=== PATIENT | female | born 1995 | race Caucasian/White ===

== ENCOUNTER 2016-08-06 15:04 | Outpatient (CLI) | payer OTHER | END 2016-08-06 23:00 | LOC: LAB SRH 15:04 | DX: E16.2 Hypoglycemia, unspecified (principal); N91.2 Amenorrhea, unspecified; Z33.1 Pregnant state, incidental | CPT/HCPCS: 90074; 90078; 90100; 90197; 90599; 90600; 90605; 90606; 90851; 91286; 92120; 92121; 92122; 92123; 92124; 92125; 92126; 92127; 92128; 92129; 92668; 92670; 93140; 94129; 94130; 98480 ==

== ENCOUNTER 2016-09-10 09:45 | Emergency (ER) | payer OTHER ==
--- NOTE | 2016-09-10 11:08 | ED NURSING NOTES ---
Clinical Report - Nurses [facility] [place] [address] 09/10/2016 9:45 Patient: YOSELIN URBANO TRIAGE Triage time 09:52. Acuity: LEVEL 3. Chief Complaint: PAINFUL URINATION, URGENCY and FREQUENCY and ABDOMINAL PAIN. --09:55 Linda Heath R.N. 09:40 09/10/16. BP: 129/83. HR: 102. RR: 20. O2 saturation: 97%. Temp: 98.4 F. Pain level now: 02/10. --11:10 Linda Heath R.N. Weight: 56.6 kg. Height/Length: 62 inches. BMI: 22.8. --09:54 Linda Heath R.N. Medications None. --11:16 Linda Haeth R.N. Allergies Aspirin. Claritin. --11:16 Linda Heath R.N. History Arrived by private vehicle. Historian: patient. This started yesterday. ( Pt reports she is 11 weeks - No care yet.). She has had fever and abdominal pain. ( vomiting). Last oral intake by patient was breakfast. PAST MEDICAL HX: Pelvic inflammatory disease. SOCIAL HX: Current every day heavy tobacco smoker- 1 pack per day. No alcohol use or drug use. No infectious disease exposure. ABUSE ASSESSMENT: No report of abuse. SELF HARM ASSESSMENT: A self harm assessment was performed. The patient answered "no" to the question "Do you have thoughts of harming or killing yourself?". --09:55 Linda Heath R.N. PROBLEMS: Pelvic Inflammatory Disease. Lumbar Strain. Vaginitis. Dysfunctional Uterine Bleeding. Vaginal Bleeding. Anxiety Reaction. Depression. Pelvic Pain. Asthma. --09:54 Linda Heath R.N. PHYSICAL ASSESSMENT GENERAL / NEURO / PSYCH: Alert. Oriented X 4. Appears anxious. RESPIRATORY: Respirations not labored. CVS: Capillary refill less than 2 seconds. GI / : Abdominal tenderness. Pain with urination. She has had frequency of urination. SKIN: Skin is warm and dry. --10:01 iLnda Heath R.N. NURSING PROGRESS NOTES ( Pt states she is homeless, stayed in a park last night.). --09:56 Linda Heath R.N. ( Pt reports having an "anxiety attack" since yesterday and is asking for "something to help me calm down."). --09:58 Linda Heath R.N. ( cloudy, turbid urine collected and sent to the lab.). --10:00 Linda Heath R.N. Patient gowned. Head of bed elevated. Reassurance given. Call light placed in reach. Patient waiting for evaluation. --10:01 Linda Heath R.N. 10:16 09/10/2016 Zofran ODT (Ondansetron) PO Oral Disintegrating Tablets 4 mg given. --10:17 Linda Heath R.N. 10:39 09/10/2016 GI COCKTAIL WHITE (Simethicone) PO Oral Suspension 50 mL given. Allergies verified and confirmed 5 rights. --10:39 Linda Heath R.N. 10:39 09/10/16. BP: 96/56. HR: 108. RR: 20. O2 saturation: 100%. --10:40 Linda Heath R.N. 11:08 09/10/16. BP: 89/58. HR: 104. RR: 20. O2 saturation: 98%. --11:08 Linda Heath R.N. DISPOSITION / DISCHARGE Departure time: 1114. Discharge instructions provided and reviewed with the patient. Patient verbalized understanding. Written instructions provided in Malaysian. The patient was discharged by the physician. She was discharged home. She left the Emergency Department ambulatory and via private vehicle. Patient driving. --11:15 Linda Heath R.N. 11:15 09/10/16. BP: 89/58. HR: 104. RR: 20. O2 saturation: 97%. Pain level now: 12/11. --11:15 Linda Heath R.N. Locked/Released at 09/10/2016 11:17 by Linda Heath R.N.
--- NOTE | 2016-09-10 11:08 | ED ORDER SUMMARY ---
..... Patient: YOSELIN URBANO OrderSheet [facility] VisitID: [id number] [place] [address] 21y, F Registration Date/Time: 09/10/2016 ORDER SHEET Weight: 56.6 kg Allergies: Aspirin, Claritin GENERAL ORDERS: Urine Urgent (:09/10/2016 SStone R.N. per protocol) (Ack 9:59 KHoerner) (9:59 KHoerner) UA-Culture if indicated Urgent (:09/10/2016 SStone R.N. per protocol) (Ack 9:59 KHoerner) (9:59 KHoerner) MEDICATION ORDERS: Zofran ODT PO 4 mg (NOW) (10:12 09/10/2016 Jeana FERNANDEZ) (10:17 SStone R.N.) GI Cocktail WHITE PO 50 mL (NOW) (10:13 09/10/2016 Jeana FERNANDEZ) (10:39 SStone R.N.) IV FLUIDS: ORDER SHEET NOTES: [Electronically signed by Linda Heath R.N. (11:09/10/2016)] [Electronically signed by Ej Lee MD (09:31 09/11/2016)] [Electronically locked/signed by Linda Heath R.N. (:09/10/2016)]
--- NOTE | 2016-09-10 11:08 | ED ORDER SUMMARY ---
..... Patient: YOSELIN URBANO OrderSheet [facility] VisitID: [id number] [place] [address] 21y, F Registration Date/Time: 09/10/2016 ORDER SHEET Weight: 56.6 kg Allergies: Aspirin, Claritin GENERAL ORDERS: Urine Urgent (:09/10/2016 SStone R.N. per protocol) (Ack 9:59 KHoerner) (9:59 KHoerner) UA-Culture if indicated Urgent (:09/10/2016 SStone R.N. per protocol) (Ack 9:59 KHoerner) (9:59 KHoerner) MEDICATION ORDERS: Zofran ODT PO 4 mg (NOW) (10:12 09/10/2016 Jeana FERNANDEZ) (10:17 SStone R.N.) GI Cocktail WHITE PO 50 mL (NOW) (10:13 09/10/2016 Jeana FERNANDEZ) (10:39 SStone R.N.) IV FLUIDS: ORDER SHEET NOTES: [Electronically signed by Linda Heath R.N. (11:09/10/2016)] [Electronically signed by Ej Lee MD (09:31 09/11/2016)] [Electronically locked/signed by Linda Heath R.N. (:09/10/2016)]
--- NOTE | 2016-09-10 11:08 | ED CLINICAL REPORT ---
Clinical Report - Physicians/Mid Levels [facility] [address] [place] [address] 09/10/2016 9:45 Patient: YOSELIN URBANO Time Seen: 10:Sep 10 2016. Arrived- By private vehicle. Historian- patient. CPT: ER phys charges level 4 (#[id number]). HISTORY OF PRESENT ILLNESS Chief Complaint: DYSURIA. This started today and still present. The symptoms are described as moderate. Modifying factors- worsened by urination. Not relieved by anything. The patient has had moderate abdominal pain. The pain is described as located in the epigastrium and lower abdomen. No pelvic pain, vaginal pain, abnormal bleeding or vaginal discharge. The patient has had pain with urination. The patient has had urinary frequency. Currently . Similar symptoms previously: As bad. Recent medical care: Not recently seen/assessed. REVIEW OF SYSTEMS No nausea, vomiting, diarrhea, fever or chills. No sore throat, cough, difficulty breathing, chest pain or skin rash. All systems otherwise negative, except as recorded above. PAST HISTORY ( Pelvic Inflammatory Disease. Lumbar Strain. Vaginitis. Dysfunctional Uterine Bleeding. Vaginal Bleeding. Anxiety Reaction. Depression. Pelvic Pain. Asthma.). Medications: None. Allergies: Aspirin. Claritin. SOCIAL HISTORY Heavy tobacco smoker (cigarette)- 1 pack per day. No alcohol use or drug use. ADDITIONAL NOTES The nursing notes have been reviewed. PHYSICAL EXAM Vital Signs: 09/10/2016 09:40 BP: 129/83. HR: 102. RR: 20. O2 saturation: 97%. Temp: 98.4 F. Pain level now: 02/10. Appearance: Alert. Patient in mild distress. HEENT: Normal external inspection. ENT: Pharynx normal. Neck: Neck supple. CVS: Heart sounds normal. Respiratory: No respiratory distress. Breath sounds normal. Chest nontender. Abdomen: Mild tenderness in the epigastric area and lower abdomen. No guarding. Bowel sounds normal. Back: Normal external inspection. No CVA tenderness. Skin: Skin warm. Normal skin color. No rash. Extremities: Extremities nontender. No lower extremity edema. Neuro: Oriented X 3. Mood/affect normal. No motor deficit. LABS, X-RAYS, AND EKG Laboratory Tests: UA-Culture if indicated: (EFRAIN: 09/10/2016 09:50) ( [facility] 09/10/2016 10:30) Final results Test Result Flag Units (Reference) URINE COLOR YELLOW URINE APPEARANCE CLOUDY URINE GLUCOSE NEGATIVE (NEGATIVE) URINE BILIRUBIN ICTOTEST NEGATIVE (NEGATIVE) URINE KETONE TRACE (NEGATIVE) URINE SPECIFIC GRAVITY >= 1.030 (1.010-1.030) URINE PH 6.0 (5.0-8.0) URINE PROTEIN TRACE (NEGATIVE) URINE UROBILINOGEN 0.2 EU/dL (0.2-1.0) URINE NITRITE NEGATIVE (NEGATIVE) URINE BLOOD 1+ (NEGATIVE) URINE LEUK ESTERASE POSITIVE (NEGATIVE) URINE RBC 5-10 rbc/hpf (0-1) URINE WBC 5-10 wbc/hpf (0-1) URINE EPITHELIAL CELLS 5-10 EPI/hpf (0-5) URINE BACTERIA MODERATE (2+ TO 3+) (NONE SEEN) URINE COMMENT CULTURE INDICATED 3+ AMORPHOUS CRYSTALSURINE CULTURES ARE SET-UP BASED ON THE FOLLOWING CRITERIA:POSITIVE NITRITEPOSITIVE LEUKOCYTE ESTERASEGREATER THAN 10 WHITE BLOOD CELLSMODERATE (2+) OR GREATER BACTERIA Urine: (EFRAIN: 09/10/2016 09:50) ( [facility] 09/10/2016 10:18) Final results Test Result Flag Units (Reference) URINE POSITIVE . PROGRESS AND PROCEDURES Course of Care: Zofran 4 mg ODT White GI cocktail Patient is stable. Symptoms better. Pt wsith UTI and gastritis vs reflux. Now c/o chronic low back pain . Exam shows mild soft tissue tenderness over the lumbar soft tissue. Neuro exam negative. No emergent condition.No sign of pyelo. Patient/family counseled. Disposition: Discharged. Condition: stable. CLINICAL IMPRESSION Acute epigastric and suprapubic abdominal pain. Acute urinary tract infection with cystitis. Acute gastritis. No chronic gastritis, alcoholic gastritis or hemorrhagic gastritis. First trimester ; positive test in emergency department. Musculoskeletal , low back pain. INSTRUCTIONS Apply moist heat for 15-20 minutes three times a day for five days until better. No strenuous activity. Rest. Drink plenty of fluids. No sexual contact. Warnings: Further evaluation is necessary. Prescription Medications: Cephalexin 500mg: take 1 tab orally every 6 hours for 7 days. No refills Carafate 1 gm tablets: take 1 orally four times daily (1 hour before meals and at bedtime). Dispense sixty (60). No refills. Substitution is permissible. Prilosec 40 mg capsules: take 1 capsule orally every day for 10 days. Dispense ten (10). No refill. OTC Medications: Take acetaminophen (Tylenol, Datril, etc.) according to label instructions. Available over the counter. Follow-up: Follow up with your doctor in two days. Call for the next available appointment. Understanding of the discharge instructions verbalized by patient. (Electronically signed by Ej Lee MD 09/11/2016 9:31)
--- NOTE | 2016-09-10 11:08 | ED CLINICAL REPORT ---
Clinical Report - Physicians/Mid Levels [facility] [address] [place] [address] 09/10/2016 9:45 Patient: YOSELIN URBANO Time Seen: 10:Sep 10 2016. Arrived- By private vehicle. Historian- patient. CPT: ER phys charges level 4 (#[id number]). HISTORY OF PRESENT ILLNESS Chief Complaint: DYSURIA. This started today and still present. The symptoms are described as moderate. Modifying factors- worsened by urination. Not relieved by anything. The patient has had moderate abdominal pain. The pain is described as located in the epigastrium and lower abdomen. No pelvic pain, vaginal pain, abnormal bleeding or vaginal discharge. The patient has had pain with urination. The patient has had urinary frequency. Currently . Similar symptoms previously: As bad. Recent medical care: Not recently seen/assessed. REVIEW OF SYSTEMS No nausea, vomiting, diarrhea, fever or chills. No sore throat, cough, difficulty breathing, chest pain or skin rash. All systems otherwise negative, except as recorded above. PAST HISTORY ( Pelvic Inflammatory Disease. Lumbar Strain. Vaginitis. Dysfunctional Uterine Bleeding. Vaginal Bleeding. Anxiety Reaction. Depression. Pelvic Pain. Asthma.). Medications: None. Allergies: Aspirin. Claritin. SOCIAL HISTORY Heavy tobacco smoker (cigarette)- 1 pack per day. No alcohol use or drug use. ADDITIONAL NOTES The nursing notes have been reviewed. PHYSICAL EXAM Vital Signs: 09/10/2016 09:40 BP: 129/83. HR: 102. RR: 20. O2 saturation: 97%. Temp: 98.4 F. Pain level now: 02/10. Appearance: Alert. Patient in mild distress. HEENT: Normal external inspection. ENT: Pharynx normal. Neck: Neck supple. CVS: Heart sounds normal. Respiratory: No respiratory distress. Breath sounds normal. Chest nontender. Abdomen: Mild tenderness in the epigastric area and lower abdomen. No guarding. Bowel sounds normal. Back: Normal external inspection. No CVA tenderness. Skin: Skin warm. Normal skin color. No rash. Extremities: Extremities nontender. No lower extremity edema. Neuro: Oriented X 3. Mood/affect normal. No motor deficit. LABS, X-RAYS, AND EKG Laboratory Tests: UA-Culture if indicated: (EFRAIN: 09/10/2016 09:50) ( [facility] 09/10/2016 10:30) Final results Test Result Flag Units (Reference) URINE COLOR YELLOW URINE APPEARANCE CLOUDY URINE GLUCOSE NEGATIVE (NEGATIVE) URINE BILIRUBIN ICTOTEST NEGATIVE (NEGATIVE) URINE KETONE TRACE (NEGATIVE) URINE SPECIFIC GRAVITY >= 1.030 (1.010-1.030) URINE PH 6.0 (5.0-8.0) URINE PROTEIN TRACE (NEGATIVE) URINE UROBILINOGEN 0.2 EU/dL (0.2-1.0) URINE NITRITE NEGATIVE (NEGATIVE) URINE BLOOD 1+ (NEGATIVE) URINE LEUK ESTERASE POSITIVE (NEGATIVE) URINE RBC 5-10 rbc/hpf (0-1) URINE WBC 5-10 wbc/hpf (0-1) URINE EPITHELIAL CELLS 5-10 EPI/hpf (0-5) URINE BACTERIA MODERATE (2+ TO 3+) (NONE SEEN) URINE COMMENT CULTURE INDICATED 3+ AMORPHOUS CRYSTALSURINE CULTURES ARE SET-UP BASED ON THE FOLLOWING CRITERIA:POSITIVE NITRITEPOSITIVE LEUKOCYTE ESTERASEGREATER THAN 10 WHITE BLOOD CELLSMODERATE (2+) OR GREATER BACTERIA Urine: (EFRAIN: 09/10/2016 09:50) ( [facility] 09/10/2016 10:18) Final results Test Result Flag Units (Reference) URINE POSITIVE . PROGRESS AND PROCEDURES Course of Care: Zofran 4 mg ODT White GI cocktail Patient is stable. Symptoms better. Pt wsith UTI and gastritis vs reflux. Now c/o chronic low back pain . Exam shows mild soft tissue tenderness over the lumbar soft tissue. Neuro exam negative. No emergent condition.No sign of pyelo. Patient/family counseled. Disposition: Discharged. Condition: stable. CLINICAL IMPRESSION Acute epigastric and suprapubic abdominal pain. Acute urinary tract infection with cystitis. Acute gastritis. No chronic gastritis, alcoholic gastritis or hemorrhagic gastritis. First trimester ; positive test in emergency department. Musculoskeletal , low back pain. INSTRUCTIONS Apply moist heat for 15-20 minutes three times a day for five days until better. No strenuous activity. Rest. Drink plenty of fluids. No sexual contact. Warnings: Further evaluation is necessary. Prescription Medications: Cephalexin 500mg: take 1 tab orally every 6 hours for 7 days. No refills Carafate 1 gm tablets: take 1 orally four times daily (1 hour before meals and at bedtime). Dispense sixty (60). No refills. Substitution is permissible. Prilosec 40 mg capsules: take 1 capsule orally every day for 10 days. Dispense ten (10). No refill. OTC Medications: Take acetaminophen (Tylenol, Datril, etc.) according to label instructions. Available over the counter. Follow-up: Follow up with your doctor in two days. Call for the next available appointment. Understanding of the discharge instructions verbalized by patient. (Electronically signed by Ej Lee MD 09/11/2016 9:31)
--- NOTE | 2016-09-10 11:08 | ED NURSING NOTES ---
Clinical Report - Nurses [facility] [place] [address] [place] [address] 09/10/2016 9:45 Patient: YOSELIN URBANO TRIAGE Triage time 09:52. Acuity: LEVEL 3. Chief Complaint: PAINFUL URINATION, URGENCY and FREQUENCY and ABDOMINAL PAIN. --09:55 Linda Heath R.N. 09:40 09/10/16. BP: 129/83. HR: 102. RR: 20. O2 saturation: 97%. Temp: 98.4 F. Pain level now: 02/10. --11:10 Linda Heath R.N. Weight: 56.6 kg. Height/Length: 62 inches. BMI: 22.8. --09:54 Linda Heath R.N. Medications None. --11:16 Linda Heath R.N. Allergies Aspirin. Claritin. --11:16 Linda Heath R.N. History Arrived by private vehicle. Historian: patient. This started yesterday. ( Pt reports she is 11 weeks - No care yet.). She has had fever and abdominal pain. ( vomiting). Last oral intake by patient was breakfast. PAST MEDICAL HX: Pelvic inflammatory disease. SOCIAL HX: Current every day heavy tobacco smoker- 1 pack per day. No alcohol use or drug use. No infectious disease exposure. ABUSE ASSESSMENT: No report of abuse. SELF HARM ASSESSMENT: A self harm assessment was performed. The patient answered "no" to the question "Do you have thoughts of harming or killing yourself?". --09:55 Linda Heath R.N. PROBLEMS: Pelvic Inflammatory Disease. Lumbar Strain. Vaginitis. Dysfunctional Uterine Bleeding. Vaginal Bleeding. Anxiety Reaction. Depression. Pelvic Pain. Asthma. --09:54 Linda Heath R.N. PHYSICAL ASSESSMENT GENERAL / NEURO / PSYCH: Alert. Oriented X 4. Appears anxious. RESPIRATORY: Respirations not labored. CVS: Capillary refill less than 2 seconds. GI / : Abdominal tenderness. Pain with urination. She has had frequency of urination. SKIN: Skin is warm and dry. --10:01 Linda Heath R.N. NURSING PROGRESS NOTES ( Pt states she is homeless, stayed in a park last night.). --09:56 Linda Heath R.N. ( Pt reports having an "anxiety attack" since yesterday and is asking for "something to help me calm down."). --09:58 Linda Heath R.N. ( cloudy, turbid urine collected and sent to the lab.). --10:00 Linda Heath R.N. Patient gowned. Head of bed elevated. Reassurance given. Call light placed in reach. Patient waiting for evaluation. --10:01 Linda Heath R.N. 10:16 09/10/2016 Zofran ODT (Ondansetron) PO Oral Disintegrating Tablets 4 mg given. --10:17 Linda Heath R.N. 10:39 09/10/2016 GI COCKTAIL WHITE (Simethicone) PO Oral Suspension 50 mL given. Allergies verified and confirmed 5 rights. --10:39 Linda Heath R.N. 10:39 09/10/16. BP: 96/56. HR: 108. RR: 20. O2 saturation: 100%. --10:40 Linda Heath R.N. 11:08 09/10/16. BP: 89/58. HR: 104. RR: 20. O2 saturation: 98%. --11:08 Linda Heath R.N. DISPOSITION / DISCHARGE Departure time: 1114. Discharge instructions provided and reviewed with the patient. Patient verbalized understanding. Written instructions provided in Montenegrin. The patient was discharged by the physician. She was discharged home. She left the Emergency Department ambulatory and via private vehicle. Patient driving. --11:15 Linda Heath R.N. 11:15 09/10/16. BP: 89/58. HR: 104. RR: 20. O2 saturation: 97%. Pain level now: 12/11. --11:15 Linda Heath R.N. Locked/Released at 09/10/2016 11:17 by Linda Heath R.N.
--- NOTE | 2016-09-11 09:32 | ED MAR SUMMARY ---
..... Medication Administration Record [facility] [address] [place] [address] Patient: YOSELIN URBANO Visit ID: [id number] 21y, F Weight: 56.6 kg Height/Length: 62 in BMI: 22.8 ALLERGIES: Aspirin, Claritin Given 10:16 09/10/2016 Linda Heath R.N. Medication Administered: ZOFRAN ODT [PO] (ONDANSETRON), Dose: 4 mg Oral Disintegrating Tablets PO. Medication Ordered: Zofran ODT PO 4 mg (NOW). Given 10:39 09/10/2016 Linda Heath RRonna Medication Administered: GI COCKTAIL WHITE [PO] (SIMETHICONE), Dose: 50 mL Oral Suspension PO. Medication Ordered: GI Cocktail WHITE PO 50 mL (NOW).
--- NOTE | 2016-09-11 09:32 | ED MED RECONCILIATION SUMMARY ---
Patient: YOSELIN URBANO Medication Reconciliation Report [facility] VisitID: [id number] [place] [address] 21y, F Registration Date/Time: 09/10/2016 Weight: 56.6 kg Height/Length: 62 in. BMI: 22.8 ALLERGIES: Aspirin, Claritin The patient's Home Medications are listed below: NONE. The source(s) of the original Home Medication information: Not obtained. The following Medications were given to the patient in the Emergency Department: Zofran ODT [PO] PO 4 mg, administered: 09/10/2016 10:16:00 AM GI COCKTAIL WHITE [PO] PO 50 mL, administered: 09/10/2016 10:39:00 AM The following Medications were prescribed to the patient: Take acetaminophen (Tylenol, Datril, etc.) according to label instructions. Available over the counter. -- Ej Lee MD Cephalexin 500mg: take 1 tab orally every 6 hours for 7 days. No refills -- Ej Lee MD Carafate 1 gm tablets: take 1 orally four times daily (1 hour before meals and at bedtime). Dispense sixty (60). No refills. Substitution is permissible. -- Ej Lee MD Prilosec 40 mg capsules: take 1 capsule orally every day for 10 days. Dispense ten (10). No refill. -- Ej Lee MD
--- NOTE | 2016-09-11 09:32 | ED DISCHARGE INSTRUCTIONS ---
Patient: YOSELIN URBANO General Instructions [facility] VisitID: [id number] [place] [address] 21y, F Registration Date/Time: 09/10/2016 Acute epigastric and suprapubic abdominal pain. Acute urinary tract infection with cystitis. Acute gastritis. No chronic gastritis, alcoholic gastritis or hemorrhagic gastritis. First trimester ; positive test in emergency department. Musculoskeletal , low back pain. INSTRUCTIONS Apply moist heat for 15-20 minutes three times a day for five days until better. No strenuous activity. Rest. Drink plenty of fluids. No sexual contact. Warnings: Further evaluation is necessary. Prescription Medications: Cephalexin 500mg: take 1 tab orally every 6 hours for 7 days. No refills Carafate 1 gm tablets: take 1 orally four times daily (1 hour before meals and at bedtime). Dispense sixty (60). No refills. Substitution is permissible. Prilosec 40 mg capsules: take 1 capsule orally every day for 10 days. Dispense ten (10). No refill. OTC Medications: Take acetaminophen (Tylenol, Datril, etc.) according to label instructions. Available over the counter. Follow-up: Follow up with your doctor in two days. Call for the next available appointment. Understanding of the discharge instructions verbalized by patient. ADDITIONAL INFORMATION Bladder Infection,Female (Adult) A bladder infection ("cystitis" or "UTI") usually causes a constant urge to urinate and a burning when passing urine. Urine may be cloudy, smelly or dark. There may be pain in the lower abdomen. A bladder infection occurs when bacteria from the vaginal area enter the bladder opening (urethra). This can occur from sexual intercourse, wearing tight clothing, dehydration and other factors. Home Care: Drink lots of fluids (at least 6-8 glasses a day, unless you must restrict fluids for other medical reasons). This will force the medicine into your urinary system and flush the bacteria out of your body. Avoid sexual intercourse until your symptoms are gone. Avoid caffeine, alcohol and spicy foods. These can irritate the bladder. A bladder infection is treated with antibiotics. You may also be given Pyridium (generic = phenazopyridine) to reduce the burning sensation. This medicine will cause your urine to become a bright orange color. The orange urine may stain clothing. You may wear a pad or panty-liner to protect clothing. Preventing Future Infections: Always wipe from front to back after a bowel movement. Keep the genital area clean and dry. Drink plenty of fluids each day to avoid dehydration. Both sexual partners should wash before intercourse. Urinate right after intercourse to flush out the bladder. Wear cotton underwear and cotton-lined panty hose; avoid tight-fitting pants. If you are on control pills and are having frequent bladder infections, discuss with your doctor. Follow Up: Return to this facility or see your doctor if ALL symptoms are not gone after three days of treatment. Get Prompt Medical Attention if any of the following occur: Fever of 100.4F (38C) or higher, or as directed by your healthcare provider No improvement by the third day of treatment Increasing back or abdominal pain Repeated vomiting; unable to keep medicine down Weakness, dizziness or fainting Vaginal discharge Pain, redness or swelling in the labia (outer vaginal area) Gastritis Versus Ulcer (No Antibiotic Tx) The symptoms of gastritis and peptic ulcer are very similar. Both can cause a dull ache or burning pain in the upper abdomen. Other symptoms include nausea, vomiting, loss of appetite, and belching or bloating. Blood in the vomit or stools (red or black) is a sign of bleeding in the stomach. This requires immediate medical attention. A Peptic Ulcer is an open sore in the lining of the stomach or duodenum (upper intestine). The most common cause of peptic ulcer disease is a bacterial infection (H pylori) in the stomach. Another common cause is taking anti-inflammatory medications (such as ibuprofen, prednisone, and aspirin). Gastritis is an irritation of the stomach lining. It can be acute (recent) or chronic (lasting a long time). Gastritis can be caused by overuse of alcohol or anti-inflammatory medications (such as aspirin, ibuprofen, prednisone). H pyloriinfection can also cause chronic gastritis. Tests for H pyloriare used to screen for bacterial infection. If no infection is found, ulcer and gastritis can be treated by stopping the cause, such as anti-inflammatory medications, alcohol, caffeine, and tobacco, and treating with antacids plus an acid joanne medication. If H pylori infection is found, antibiotics will be prescribed along with an acid joanne. Persons 55 years and older may undergo other tests before treatment is started. Two common tests are used to evaluate your symptoms. An upper GI series is an x-ray taken after you drink a chalky liquid called barium. This coats the stomach and allows an ulcer to show up on the x-ray. Another test is called endoscopy during which a long thin tube called an endoscope is passed down your throat to the stomach. A camera at the end of the scope allows the doctor to view inside the stomach to check the cause of your symptoms. Home Care: Take the prescribed acid joanne medication for the full course of treatment even if you begin to feel better sooner. This medication can take up to several days to fully control your symptoms. If you cant afford the prescribed medication, you can try mcve-zcg-ynquqhy acid blockers, such as Pepcid AC, Tagamet, Zantac, or Aciphex. If these do not relieve your symptoms, a stronger acid-joanne can be tried, such as Prilosec OTC. If you have been prescribed an antibiotic to treat H pyloriinfection, finish the full course of medication. Do so even if you begin to feel better sooner. If you stop the medication too soon, the infection can return and be harder to treat. You can use antacids, such as Tums, Rolaids, Mylanta, or Maalox, for pain. This will be useful the first few days after starting acid blockers when the blockers havent started working yet. Follow the directions on the label. Liquid antacids may work better than tablets. Note that antacids can interfere with absorption of certain medications. Specifically, do not take Tagamet (cimetidine), Zantac (ranitidine), or Carafate (sucralfate) within 1 hour of taking an antacid. Talk with your pharmacist if you have any questions. Although foods do not cause an ulcer, symptoms can be worsened by certain foods. Limit or avoid fatty, fried, and spicy foods, as well as coffee, chocolate, mint, and foods with high acid content such as tomatoes and citrus fruit and juices (orange, grapefruit, lemon). Avoid alcohol, caffeine, and tobacco, which can delay healing. Avoid aspirin and anti-inflammatory medications such as ibuprofen (Advil, Motrin) and naproxen (Naprosyn, Aleve). Acetaminophen (Tylenol) is safe to use. Do not take more than the amount listed on the label. Follow Up with your doctor or as advised. Further testing may be needed. If you do not begin to improve over the next 4 days, contact your doctor. If you had tests, youll be notified of any new findings that affect your care. Get Prompt Medical Attention if any of the following occur: Stomach pain gets worse or moves to the lower right abdomen (appendix area) Chest pain appears or gets worse, or spreads to the back, neck, shoulder, or arm Frequent vomiting (cant keep down liquids) Blood in the stool or vomit (red or black in color) Feeling weak or dizzy, fainting, or trouble breathing Fever of 100.4F (38C) or higher, or as directed by your healthcare provider Omeprazole Magnesium Gastro-resistant tablet What is this medicine? OMEPRAZOLE (oh ME pray zol) prevents the production of acid in the stomach. It is used to treat the symptoms of heartburn. You can buy this medicine without a prescription. This product is not for long-term use, unless otherwise directed by your doctor or health manager critical care unit. How should I use this medicine? Take this medicine by mouth. Follow the directions on the product label. If you are taking this medicine without a prescription, take one tablet every day. Do not use for longer than 14 days or repeat a course of treatment more often than every 4 months unless directed by a doctor or healthcare professional. Take your dose at regular intervals every 24 hours. Swallow the tablet whole with a drink of water. Do not crush, break or chew. This medicine works best if taken on an empty stomach 30 minutes before breakfast. If you are using this medicine with the prescription of your doctor or healthcare professional, follow the directions you were given. Do not take your medicine more often than directed. Talk to your clinical trial associate regarding the use of this medicine in children. Special care may be needed. What side effects may I notice from receiving this medicine? Side effects that you should report to your doctor or health manager critical care unit as soon as possible: allergic reactions like skin rash, itching or hives, swelling of the face, lips, or tongue bone, muscle or joint pain breathing problems chest pain or chest tightness dark yellow or brown urine diarrhea dizziness fast, irregular heartbeat feeling faint or lightheaded fever or sore throat muscle spasm palpitations redness, blistering, peeling or loosening of the skin, including inside the mouth seizures tremors unusual bleeding or bruising unusually weak or tired yellowing of the eyes or skin Side effects that usually do not require medical attention (Report these to your doctor or health manager critical care unit if they continue or are bothersome.): constipation dry mouth headache loose stools nausea What may interact with this medicine? Do not take this medicine with any of the following medications: atazanavir clopidogrel nelfinavir This medicine may also interact with the following medications: ampicillin certain medicines for anxiety or sleep certain medicines that treat or prevent blood clots like warfarin cyclosporine diazepam digoxin disulfiram iron salts phenytoin prescription medicine for fungal or yeast infection like itraconazole, ketoconazole, voriconazole saquinavir tacrolimus What if I miss a dose? If you miss a dose, take it as soon as you can. If it is almost time for your next dose, take only that dose. Do not take double or extra doses. Where should I keep my medicine? Keep out of the reach of children. Store at room temperature between 20 and 25 degrees C (68 and 77 degrees F). Protect from light and moisture. Throw away any unused medicine after the expiration date. What should I tell my health care provider before I take this medicine? They need to know if you have any of these conditions: black or bloody stools chest pain difficulty swallowing have had heartburn for over 3 months have heartburn with dizziness, lightheadedness or sweating liver disease stomach pain unexplained weight loss vomiting with blood wheezing an unusual or allergic reaction to omeprazole, other medicines, foods, dyes, or preservatives or trying to get breast-feeding What should I watch for while using this medicine? It can take several days before your heartburn gets better. Check with your doctor or health manager critical care unit if your condition does not start to get better, or if it gets worse. Do not treat diarrhea with over the counter products. Contact your doctor if you have diarrhea that lasts more than 2 days or if it is severe and watery. Do not treat yourself for heartburn with this medicine for more than 14 days in a row. You should only use this medicine for a 2-week treatment period once every 4 months. If your symptoms return shortly after your therapy is complete, or within the 4 month time frame, call your doctor or health manager critical care unit. You have been given the following additional information: Bladder Infection, Female (Adult) Gastritis Vs. Ulcer Omeprazole Magnesium Gastro-resistant tablet No strenuous activity. Rest. (Electronically signed by Ej Lee MD 09/11/2016 9:31)
--- NOTE | 2016-09-11 09:32 | ED MED RECONCILIATION SUMMARY ---
Patient: YOSELIN URBANO Medication Reconciliation Report [facility] VisitID: [id number] [place] [address] 21y, F Registration Date/Time: 09/10/2016 Weight: 56.6 kg Height/Length: 62 in. BMI: 22.8 ALLERGIES: Aspirin, Claritin The patient's Home Medications are listed below: NONE. The source(s) of the original Home Medication information: Not obtained. The following Medications were given to the patient in the Emergency Department: Zofran ODT [PO] PO 4 mg, administered: 09/10/2016 10:16:00 AM GI COCKTAIL WHITE [PO] PO 50 mL, administered: 09/10/2016 10:39:00 AM The following Medications were prescribed to the patient: Take acetaminophen (Tylenol, Datril, etc.) according to label instructions. Available over the counter. -- Ej Lee MD Cephalexin 500mg: take 1 tab orally every 6 hours for 7 days. No refills -- Ej Lee MD Carafate 1 gm tablets: take 1 orally four times daily (1 hour before meals and at bedtime). Dispense sixty (60). No refills. Substitution is permissible. -- Ej Lee MD Prilosec 40 mg capsules: take 1 capsule orally every day for 10 days. Dispense ten (10). No refill. -- Ej Lee MD
--- NOTE | 2016-09-11 09:32 | ED MAR SUMMARY ---
..... Medication Administration Record [facility] [address] [place] [address] Patient: YOSELIN URBANO Visit ID: [id number] 21y, F Weight: 56.6 kg Height/Length: 62 in BMI: 22.8 ALLERGIES: Aspirin, Claritin Given 10:16 09/10/2016 Linda Heath R.N. Medication Administered: ZOFRAN ODT [PO] (ONDANSETRON), Dose: 4 mg Oral Disintegrating Tablets PO. Medication Ordered: Zofran ODT PO 4 mg (NOW). Given 10:39 09/10/2016 Linda Heath RRonna Medication Administered: GI COCKTAIL WHITE [PO] (SIMETHICONE), Dose: 50 mL Oral Suspension PO. Medication Ordered: GI Cocktail WHITE PO 50 mL (NOW).
== END 2016-09-10 11:13 | disposition home or self-care (01) ==
LOC: ED SRH 09:45
DX: O23.31 Infections of other parts of urinary tract in pregnancy, first trimester (principal); O99.89 Other specified diseases and conditions complicating pregnancy, childbirth and the puerperium; K29.00 Acute gastritis without bleeding; R10.816 Epigastric abdominal tenderness; R10.30 Lower abdominal pain, unspecified; M54.5 Low back pain; Z3A.11 11 weeks gestation of pregnancy; F17.210 Nicotine dependence, cigarettes, uncomplicated; Z88.8 Allergy status to other drugs, medicaments and biological substances
CPT/HCPCS: 90004; 90469; 93070

== ENCOUNTER 2016-11-01 12:02 | Emergency (ER) | payer OTHER ==
--- NOTE | 2016-11-01 12:34 | ED CLINICAL REPORT ---
Clinical Report - Physicians/Mid Levels [facility] [address] [place] [address] 11/01/2016 12:02 Patient: YOSELIN URBANO Time Seen: 1215; initial patient contact, initial documentation, patient care assumed. Arrived- By private vehicle. Historian- patient. HISTORY OF PRESENT ILLNESS Chief Complaint: can't feel baby move. This started about 1 weeks ago and still present. Modifying factors. Not worsened by anything. Not relieved by anything. No abdominal pain, pelvic pain, vaginal pain, low back pain or flank pain. No abnormal bleeding, vaginal discharge, vaginal itching, pain with urination or urinary frequency. No urgency of urination or hematuria. Not sexually active. Does not use control measures. (states she is getting no care, and this past week hasn't felt the baby move, she thinks she is 18 wks along). Currently : says she did so many drugs, she can't remember how many times she has been , but she has no living babies. In 2nd trimester. Uncertain of dates. confirmed with home test. Has had no care. P 0. Not receiving care. Similar symptoms previously: None. Recent medical care: Not recently seen/assessed. REVIEW OF SYSTEMS No nausea, vomiting, diarrhea, fever or difficulty breathing. No chest pain. All systems otherwise negative, except as recorded above. PAST HISTORY See nurses notes. ( PROBLEMS: Gastritis. UTI - Urinary Tract Infection. Abdominal Pain. Acute Otalgia. Diabetes Mellitus. Burn Check. Lifestyle / Substance Problems. Dehydration. Sinusitis. URI. Fractured Phalanx (Toe). Endometriosis. Viral Disease. Burn. Tetanus Status. Pharyngitis. Bronchitis. Vulvovaginitis. Pelvic Inflammatory Disease. Lumbar Strain. Mood Disorder. Sprain. Contusion. Drug Poisoning. Dental Caries. Dental Pain. Suicidal Ideation. Ovarian Cyst. Mental Illness. . Back Pain. Immunizations. Vaginitis. Dysfunctional Uterine Bleeding. Vaginal Bleeding. Anxiety Reaction. Depression. Pelvic Pain. LNMP - Last Normal Menstrual Period. Asthma. --12:08 Aracelis Aguillon R.N. Ovarian Cyst [RuleOut]. --12:08 Aracelis Aguillon R.N. ADDITIONAL SURGERIES: Laparoscopy [2013]. --12:08 Aracelis Aguillon R.N.). SOCIAL HISTORY Heavy tobacco smoker. History of drug use: marijuana. No alcohol use. No recent travel. Is a local resident. FAMILY HISTORY Negative. ADDITIONAL NOTES The nursing notes have been reviewed with agreement regarding the chief complaint, HPI, ROS, PMH and patient medications and allergies. PHYSICAL EXAM Vital Signs: 11/01/2016 12:15 BP: 122/65. HR: 107. RR: 16. O2 saturation: 99%. Temp: 98.1 F. Have been reviewed as abnormal and appear to be correct. Blood pressure normal. Tachycardic. Respiratory rate normal. Temperature normal. Oxygen saturation normal. Appearance: Alert. Oriented X3. No acute distress. (dirty unkept appearance). HEENT: Normal external inspection. ENT: Pharynx normal. Neck: Neck supple. CVS: Heart sounds normal. Respiratory: No respiratory distress. Breath sounds normal. Chest nontender. Abdomen: Soft and nontender. Nontender gravid uterus palpable to umbilicus (FHT's per nurse -150's). Normal heart tones. No organomegaly. No mass. Back: Normal external inspection. : External inspection normal. Speculum exam normal. Bimanual exam normal. Skin: Skin warm and dry. Normal skin color. No rash. Normal skin turgor. Extremities: Extremities nontender. No lower extremity edema. Neuro: Oriented X 3. Mood/affect normal. No motor deficit. No sensory deficit. PROGRESS AND PROCEDURES Course of Care: nurses informing prior to my exam, pt told them she was here for an US during exam pt asked if she could have regular US because she wanted to see the baby, she hasn't had any care, and she would like to see it, explained exam was normal, and baby had strong healthy heartbeat, there was not a medical reason to do US with normal exam, agreed to rx prenatals. Patient counseled in person regarding the patient's stable condition, test results and diagnosis. Differential Diagnosis: Other possible considerations: demise, threatened miscarriage, iup,. Above considerations are based on history and physical exam. Differential diagnosis was discussed with patient. Disposition: Discharged home in good and unchanged condition (12:33). Condition: good and stable. CLINICAL IMPRESSION Second trimester .No false labor or labor. INSTRUCTIONS Warnings: GENERAL WARNINGS: Return or contact your physician immediately if your condition worsens or changes unexpectedly, if not improving as expected, or if other problems arise. Specifically return if bleeding. Prescription Medications: Zofran 4 mg: Take 1 orally every six hours as needed for nausea/vomiting. Dispense ten (10). No refills. Substitution is permissible. vitamins: Take 1 orally every day. Dispense thirty (30). No refill. Understanding of the discharge instructions verbalized by patient. Follow-up with: Chuy Arguelles MD, Obstetrics/Gynecology, , [facility], [address] [place] [address] Follow up in about three days even if well. Call for an appointment. Summary of care provided to patient. (Electronically signed by Sari Deleon A.R.N.P. 11/01/2016 13:39)
--- NOTE | 2016-11-01 12:34 | ED CLINICAL REPORT ---
Clinical Report - Physicians/Mid Levels [facility] [address] [place] [address] 11/01/2016 12:02 Patient: YOSELIN URBANO Time Seen: 1215; initial patient contact, initial documentation, patient care assumed. Arrived- By private vehicle. Historian- patient. HISTORY OF PRESENT ILLNESS Chief Complaint: can't feel baby move. This started about 1 weeks ago and still present. Modifying factors. Not worsened by anything. Not relieved by anything. No abdominal pain, pelvic pain, vaginal pain, low back pain or flank pain. No abnormal bleeding, vaginal discharge, vaginal itching, pain with urination or urinary frequency. No urgency of urination or hematuria. Not sexually active. Does not use control measures. (states she is getting no care, and this past week hasn't felt the baby move, she thinks she is 18 wks along). Currently : says she did so many drugs, she can't remember how many times she has been , but she has no living babies. In 2nd trimester. Uncertain of dates. confirmed with home test. Has had no care. P 0. Not receiving care. Similar symptoms previously: None. Recent medical care: Not recently seen/assessed. REVIEW OF SYSTEMS No nausea, vomiting, diarrhea, fever or difficulty breathing. No chest pain. All systems otherwise negative, except as recorded above. PAST HISTORY See nurses notes. ( PROBLEMS: Gastritis. UTI - Urinary Tract Infection. Abdominal Pain. Acute Otalgia. Diabetes Mellitus. Burn Check. Lifestyle / Substance Problems. Dehydration. Sinusitis. URI. Fractured Phalanx (Toe). Endometriosis. Viral Disease. Burn. Tetanus Status. Pharyngitis. Bronchitis. Vulvovaginitis. Pelvic Inflammatory Disease. Lumbar Strain. Mood Disorder. Sprain. Contusion. Drug Poisoning. Dental Caries. Dental Pain. Suicidal Ideation. Ovarian Cyst. Mental Illness. . Back Pain. Immunizations. Vaginitis. Dysfunctional Uterine Bleeding. Vaginal Bleeding. Anxiety Reaction. Depression. Pelvic Pain. LNMP - Last Normal Menstrual Period. Asthma. --12:08 Aracelis Aguillon R.N. Ovarian Cyst [RuleOut]. --12:08 Aracelis Aguillon R.N. ADDITIONAL SURGERIES: Laparoscopy [2013]. --12:08 Aracelis Aguillon R.N.). SOCIAL HISTORY Heavy tobacco smoker. History of drug use: marijuana. No alcohol use. No recent travel. Is a local resident. FAMILY HISTORY Negative. ADDITIONAL NOTES The nursing notes have been reviewed with agreement regarding the chief complaint, HPI, ROS, PMH and patient medications and allergies. PHYSICAL EXAM Vital Signs: 11/01/2016 12:15 BP: 122/65. HR: 107. RR: 16. O2 saturation: 99%. Temp: 98.1 F. Have been reviewed as abnormal and appear to be correct. Blood pressure normal. Tachycardic. Respiratory rate normal. Temperature normal. Oxygen saturation normal. Appearance: Alert. Oriented X3. No acute distress. (dirty unkept appearance). HEENT: Normal external inspection. ENT: Pharynx normal. Neck: Neck supple. CVS: Heart sounds normal. Respiratory: No respiratory distress. Breath sounds normal. Chest nontender. Abdomen: Soft and nontender. Nontender gravid uterus palpable to umbilicus (FHT's per nurse -150's). Normal heart tones. No organomegaly. No mass. Back: Normal external inspection. : External inspection normal. Speculum exam normal. Bimanual exam normal. Skin: Skin warm and dry. Normal skin color. No rash. Normal skin turgor. Extremities: Extremities nontender. No lower extremity edema. Neuro: Oriented X 3. Mood/affect normal. No motor deficit. No sensory deficit. PROGRESS AND PROCEDURES Course of Care: nurses informing prior to my exam, pt told them she was here for an US during exam pt asked if she could have regular US because she wanted to see the baby, she hasn't had any care, and she would like to see it, explained exam was normal, and baby had strong healthy heartbeat, there was not a medical reason to do US with normal exam, agreed to rx prenatals. Patient counseled in person regarding the patient's stable condition, test results and diagnosis. Differential Diagnosis: Other possible considerations: demise, threatened miscarriage, iup,. Above considerations are based on history and physical exam. Differential diagnosis was discussed with patient. Disposition: Discharged home in good and unchanged condition (12:33). Condition: good and stable. CLINICAL IMPRESSION Second trimester .No false labor or labor. INSTRUCTIONS Warnings: GENERAL WARNINGS: Return or contact your physician immediately if your condition worsens or changes unexpectedly, if not improving as expected, or if other problems arise. Specifically return if bleeding. Prescription Medications: Zofran 4 mg: Take 1 orally every six hours as needed for nausea/vomiting. Dispense ten (10). No refills. Substitution is permissible. vitamins: Take 1 orally every day. Dispense thirty (30). No refill. Understanding of the discharge instructions verbalized by patient. Follow-up with: Chuy Arguelles MD, Obstetrics/Gynecology, , [facility], [address] [place] [address] Follow up in about three days even if well. Call for an appointment. Summary of care provided to patient. (Electronically signed by Sari Deleon A.R.N.P. 11/01/2016 13:39)
--- NOTE | 2016-11-01 12:34 | ED NURSING NOTES ---
Clinical Report - Nurses [facility] [place] [address] [place] [address] 11/01/2016 12:02 Patient: YOSELIN URBANO TRIAGE Triage time 12:05. Acuity: LEVEL 4. Chief Complaint: DECREASED MOVEMENT. Alert. --12:09 Aracelis Aguillon R.N. HEART TONES: heart tones present to the left lower quadrant (158). --12:14 Aracelis Aguillon R.N. 12:15 11/01/16. BP: 122/65. HR: 107. RR: 16. O2 saturation: 99%. Temp: 98.1 F. Pain level now 0/10. --12:16 Aracelis Aguillon R.N. Weight: 52.1 kg stated. Height/Length: 62 inches Per Patient. BMI: 21. --12:08 Aracelis Aguillon R.N. Medications None. --12:08 Aracelis Aguillon R.N. Allergies Aspirin. Claritin. --12:08 Aracelis Aguillon R.N. History Arrived by private vehicle. Historian: patient. Primary physician (none). ( no mvmt for 1 week). 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 PAST MEDICAL HX: Last normal menstrual period- Jun. OB history: G 1; P 0; Ab 0. SOCIAL HX: Current every day heavy tobacco smoker (cigarette)- less than 1 pack per day. History of occasional drug use: marijuana. No alcohol use. --12:09 Aracelis Aguillon R.N. PROBLEMS: Gastritis. UTI - Urinary Tract Infection. Abdominal Pain. Acute Otalgia. Diabetes Mellitus. Burn Check. Lifestyle / Substance Problems. Dehydration. Sinusitis. URI. Fractured Phalanx (Toe). Endometriosis. Viral Disease. Burn. Tetanus Status. Pharyngitis. Bronchitis. Vulvovaginitis. Pelvic Inflammatory Disease. Lumbar Strain. Mood Disorder. Sprain. Contusion. Drug Poisoning. Dental Caries. Dental Pain. Suicidal Ideation. Ovarian Cyst. Mental Illness. . Back Pain. Immunizations. Vaginitis. Dysfunctional Uterine Bleeding. Vaginal Bleeding. Anxiety Reaction. Depression. Pelvic Pain. LNMP - Last Normal Menstrual Period. Asthma. --12:08 Aracelis Aguillon R.N. Ovarian Cyst [RuleOut]. --12:08 Aracelis Aguillon R.N. ADDITIONAL SURGERIES: Laparoscopy [2013]. --12:08 Aracelis Aguillon R.N. PHYSICAL ASSESSMENT Ambulatory to room. GENERAL / NEURO / PSYCH: Appears anxious. RESPIRATORY: Respirations not labored. --12:10 Aracelis Aguillon R.N. NURSING PROGRESS NOTES Call light placed in reach. Patient ready for evaluation- chart flagged and ED physician notified. --12:10 Aracelis Aguillon R.N. 12:25. PELVIC EXAM: Pelvic exam performed by IS MANAGER. Assisted by one nurse. Preparation: pelvic tray; patient placed in lithotomy position. Procedure: speculum exam. Status post-procedure: she was stable. Total time of assist / procedure: 15 minutes. --12:40 Nika Barraza R.N. DISPOSITION / DISCHARGE Departure time: 12:47. Condition at departure: unchanged. No learning barriers present. Discharge instructions provided and reviewed with the patient. Patient verbalized understanding. Written instructions provided in Mauritanian. The patient was discharged home. She left the Emergency Department ambulatory and via private vehicle. Patient driving. --12:47 Aracelis Aguillon R.N. 12:15 11/01/16. BP: 122/65. HR: 107. RR: 16. O2 saturation: 99%. Temp: 98.1 F. Pain level now 0/10. --20:06 Nika Barraza R.N. Locked/Released at 11/01/2016 20:07 by Nika Barraza R.N.
--- NOTE | 2016-11-01 12:34 | ED NURSING NOTES ---
Clinical Report - Nurses [facility] [place] [address] 11/01/2016 12:02 Patient: YOSELIN URBANO TRIAGE Triage time 12:05. Acuity: LEVEL 4. Chief Complaint: DECREASED MOVEMENT. Alert. --12:09 Aracelis Aguillon R.N. HEART TONES: heart tones present to the left lower quadrant (158). --12:14 Aracelis Aguillon R.N. 12:15 11/01/16. BP: 122/65. HR: 107. RR: 16. O2 saturation: 99%. Temp: 98.1 F. Pain level now 0/10. --12:16 Aracelis Aguillon R.N. Weight: 52.1 kg stated. Height/Length: 62 inches Per Patient. BMI: 21. --12:08 Aracelis Aguillon R.N. Medications None. --12:08 Aracelis Aguillon R.N. Allergies Aspirin. Claritin. --12:08 Aracelis Aguillon R.N. History Arrived by private vehicle. Historian: patient. Primary physician (none). ( no mvmt for 1 week). 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 PAST MEDICAL HX: Last normal menstrual period- Jun. OB history: G 1; P 0; Ab 0. SOCIAL HX: Current every day heavy tobacco smoker (cigarette)- less than 1 pack per day. History of occasional drug use: marijuana. No alcohol use. --12:09 Aracelis Aguillon R.N. PROBLEMS: Gastritis. UTI - Urinary Tract Infection. Abdominal Pain. Acute Otalgia. Diabetes Mellitus. Burn Check. Lifestyle / Substance Problems. Dehydration. Sinusitis. URI. Fractured Phalanx (Toe). Endometriosis. Viral Disease. Burn. Tetanus Status. Pharyngitis. Bronchitis. Vulvovaginitis. Pelvic Inflammatory Disease. Lumbar Strain. Mood Disorder. Sprain. Contusion. Drug Poisoning. Dental Caries. Dental Pain. Suicidal Ideation. Ovarian Cyst. Mental Illness. . Back Pain. Immunizations. Vaginitis. Dysfunctional Uterine Bleeding. Vaginal Bleeding. Anxiety Reaction. Depression. Pelvic Pain. LNMP - Last Normal Menstrual Period. Asthma. --12:08 Aracelis Aguillon R.N. Ovarian Cyst [RuleOut]. --12:08 Aracelis Aguillon R.N. ADDITIONAL SURGERIES: Laparoscopy [2013]. --12:08 Aracelis Aguillon R.N. PHYSICAL ASSESSMENT Ambulatory to room. GENERAL / NEURO / PSYCH: Appears anxious. RESPIRATORY: Respirations not labored. --12:10 Aracelis Aguillon R.N. NURSING PROGRESS NOTES Call light placed in reach. Patient ready for evaluation- chart flagged and ED physician notified. --12:10 Aracelis Aguillon R.N. 12:25. PELVIC EXAM: Pelvic exam performed by RADIO COMMUNICATION COORDINATOR. Assisted by one nurse. Preparation: pelvic tray; patient placed in lithotomy position. Procedure: speculum exam. Status post-procedure: she was stable. Total time of assist / procedure: 15 minutes. --12:40 Nika Barraza R.N. DISPOSITION / DISCHARGE Departure time: 12:47. Condition at departure: unchanged. No learning barriers present. Discharge instructions provided and reviewed with the patient. Patient verbalized understanding. Written instructions provided in Moldovan. The patient was discharged home. She left the Emergency Department ambulatory and via private vehicle. Patient driving. --12:47 Aracelis Aguillon R.N. 12:15 11/01/16. BP: 122/65. HR: 107. RR: 16. O2 saturation: 99%. Temp: 98.1 F. Pain level now 0/10. --20:06 Nika Barraza R.N. Locked/Released at 11/01/2016 20:07 by Nika Barraza R.N.
--- NOTE | 2016-11-01 20:07 | ED DISCHARGE INSTRUCTIONS ---
Patient: YOSELIN URBANO General Instructions [facility] VisitID: [id number] [place] [id number] 21y, F Registration Date/Time: 11/01/2016 Second trimester .No false labor or labor. INSTRUCTIONS Warnings: GENERAL WARNINGS: Return or contact your physician immediately if your condition worsens or changes unexpectedly, if not improving as expected, or if other problems arise. Specifically return if bleeding. Prescription Medications: Zofran 4 mg: Take 1 orally every six hours as needed for nausea/vomiting. Dispense ten (10). No refills. Substitution is permissible. vitamins: Take 1 orally every day. Dispense thirty (30). No refill. Understanding of the discharge instructions verbalized by patient. Follow-up with: Chuy Arguelles MD, Obstetrics/Gynecology, , [facility], [address] [place] [address] Follow up in about three days even if well. Call for an appointment. Summary of care provided to patient. ADDITIONAL INFORMATION Your exam today shows that you are . During , it is normal to develop tender swollen breasts, frequent urination and mild vaginal discharge. During the first three months, nausea is common. Guidelines For A Healthy : To ensure that your baby is born healthy there are certain things that you can do: When you feel tired, you should REST. This is especially true in the later months of . Your body needs more FLUIDS than you may be used to: You should drink 8-10 glasses of juice, milk or water. Eat well-balanced MEALS at regular intervals to supply your body with enough protein. You can expect a total weight gain of about 30 pounds during the . Do not try to diet or lose weight while you are . Because of the extra nutritional needs during , take one VITAMIN daily. Do not take any other MEDICINE during your (prescribed or [id number]) unless your doctor specifically recommends this. Many drugs can have harmful effects on the growing baby. If NAUSEA or VOMITING become a problem, avoid greasy and fried foods. Eat several smaller meals throughout the day rather than three large meals. If you SMOKE, you must stop. The nicotine you breathe in goes right to the baby. Stay away from ALCOHOL, even in moderate amounts. Daily drinking will harm your baby and can cause permanent brain damage. RECREATIONAL DRUGS are harmful, especially cocaine, crack, and heroin. Marijuana should also be avoided. If you were using recreational drugs or prescribed medicine when you found out that you were , talk to your doctor about possible effects on the fetus. Follow Up: Call to arrange for care. This can be provided by your family doctor, an swage toolsetter ( specialist) or a primary care clinic. Get Prompt Medical Attention if any of the following occur: Vaginal bleeding Moderate or severe abdominal or back pain Excessive vomiting, unable to keep any fluids down for six hours Burning with urination Headache, dizziness or rapid weight gain Your exam today shows that you are . During , it is normal to develop tender swollen breasts, frequent urination and mild vaginal discharge. During the first three months, nausea is common. Guidelines For A Healthy : To ensure that your baby is born healthy there are certain things that you can do: When you feel tired, you should REST. This is especially true in the later months of . Your body needs more FLUIDS than you may be used to: You should drink 8-10 glasses of juice, milk or water. Eat well-balanced MEALS at regular intervals to supply your body with enough protein. You can expect a total weight gain of about 30 pounds during the . Do not try to diet or lose weight while you are . Because of the extra nutritional needs during , take one VITAMIN daily. Do not take any other MEDICINE during your (prescribed or [id number]) unless your doctor specifically recommends this. Many drugs can have harmful effects on the growing baby. If NAUSEA or VOMITING become a problem, avoid greasy and fried foods. Eat several smaller meals throughout the day rather than three large meals. If you SMOKE, you must stop. The nicotine you breathe in goes right to the baby. Stay away from ALCOHOL, even in moderate amounts. Daily drinking will harm your baby and can cause permanent brain damage. RECREATIONAL DRUGS are harmful, especially cocaine, crack, and heroin. Marijuana should also be avoided. If you were using recreational drugs or prescribed medicine when you found out that you were , talk to your doctor about possible effects on the fetus. Follow Up: Call to arrange for care. This can be provided by your family doctor, an swage toolsetter ( specialist) or a primary care clinic. Get Prompt Medical Attention if any of the following occur: Vaginal bleeding Moderate or severe abdominal or back pain Excessive vomiting, unable to keep any fluids down for six hours Burning with urination Headache, dizziness or rapid weight gain Ondansetron Oral disintegrating tablet What is this medicine? ONDANSETRON (on KASI se naga) is used to treat nausea and vomiting caused by chemotherapy. It is also used to prevent or treat nausea and vomiting after surgery. How should I use this medicine? These tablets are made to dissolve in the mouth. Do not try to push the tablet through the foil backing. With dry hands, peel away the foil backing and gently remove the tablet. Place the tablet in the mouth and allow it to dissolve, then swallow. While you may take these tablets with water, it is not necessary to do so. Talk to your activities specialist regarding the use of this medicine in children. Special care may be needed. What side effects may I notice from receiving this medicine? Side effects that you should report to your doctor or health animal care provider as soon as possible: allergic reactions like skin rash, itching or hives, swelling of the face, lips, or tongue breathing problems dizziness fast or irregular heartbeat feeling faint or lightheaded, falls fever and chills swelling of the hands and feet tightness in the chest Side effects that usually do not require medical attention (report to your doctor or health animal care provider if they continue or are bothersome): constipation or diarrhea headache What may interact with this medicine? Do not take this medicine with any of the following medications: -apomorphine -cisapride -dofetilide -dronedarone -pimozide -thioridazine -ziprasidone This medicine may also interact with the following medications: -carbamazepine -phenytoin -rifampicin -tramadol -other medicines that prolong the QT interval (cause an abnormal heart rhythm) What if I miss a dose? If you miss a dose, take it as soon as you can. If it is almost time for your next dose, take only that dose. Do not take double or extra doses. Where should I keep my medicine? Keep out of the reach of children. Store between 2 and 30 degrees C (36 and 86 degrees F). Throw away any unused medicine after the expiration date. What should I tell my health care provider before I take this medicine? They need to know if you have any of these conditions: heart disease history of irregular heartbeat liver disease low levels of magnesium or potassium in the blood an unusual or allergic reaction to ondansetron, granisetron, other medicines, foods, dyes, or preservatives or trying to get breast-feeding What should I watch for while using this medicine? Check with your doctor or health animal care provider as soon as you can if you have any sign of an allergic reaction. You have been given the following additional information: , New Dx , New Dx Ondansetron Oral disintegrating tablet (Electronically signed by Sari Deleon A.R.N.P. 11/01/2016 13:39)
--- NOTE | 2016-11-01 20:07 | ED MAR SUMMARY ---
..... Medication Administration Record [facility] [address] [place], [place] [id number] Patient: YOSELIN URBANO Visit ID: [id number] 21y, F Weight: 52.1 kg Height/Length: 62 in BMI: 21 ALLERGIES: Aspirin, Claritin
--- NOTE | 2016-11-01 20:07 | ED MAR SUMMARY ---
..... Medication Administration Record [facility] [address] [place], [place] [id number] Patient: YOSELIN URBANO Visit ID: [id number] 21y, F Weight: 52.1 kg Height/Length: 62 in BMI: 21 ALLERGIES: Aspirin, Claritin
--- NOTE | 2016-11-01 20:07 | ED DISCHARGE INSTRUCTIONS ---
Patient: YOSELIN URBANO General Instructions [facility] VisitID: [id number] John [place] [id number] 21y, F Registration Date/Time: 11/01/2016 Second trimester .No false labor or labor. INSTRUCTIONS Warnings: GENERAL WARNINGS: Return or contact your physician immediately if your condition worsens or changes unexpectedly, if not improving as expected, or if other problems arise. Specifically return if bleeding. Prescription Medications: Zofran 4 mg: Take 1 orally every six hours as needed for nausea/vomiting. Dispense ten (10). No refills. Substitution is permissible. vitamins: Take 1 orally every day. Dispense thirty (30). No refill. Understanding of the discharge instructions verbalized by patient. Follow-up with: Chuy Arguelles MD, Obstetrics/Gynecology, , [facility], [address] [place] [address] Follow up in about three days even if well. Call for an appointment. Summary of care provided to patient. ADDITIONAL INFORMATION Your exam today shows that you are . During , it is normal to develop tender swollen breasts, frequent urination and mild vaginal discharge. During the first three months, nausea is common. Guidelines For A Healthy : To ensure that your baby is born healthy there are certain things that you can do: When you feel tired, you should REST. This is especially true in the later months of . Your body needs more FLUIDS than you may be used to: You should drink 8-10 glasses of juice, milk or water. Eat well-balanced MEALS at regular intervals to supply your body with enough protein. You can expect a total weight gain of about 30 pounds during the . Do not try to diet or lose weight while you are . Because of the extra nutritional needs during , take one VITAMIN daily. Do not take any other MEDICINE during your (prescribed or [id number]) unless your doctor specifically recommends this. Many drugs can have harmful effects on the growing baby. If NAUSEA or VOMITING become a problem, avoid greasy and fried foods. Eat several smaller meals throughout the day rather than three large meals. If you SMOKE, you must stop. The nicotine you breathe in goes right to the baby. Stay away from ALCOHOL, even in moderate amounts. Daily drinking will harm your baby and can cause permanent brain damage. RECREATIONAL DRUGS are harmful, especially cocaine, crack, and heroin. Marijuana should also be avoided. If you were using recreational drugs or prescribed medicine when you found out that you were , talk to your doctor about possible effects on the fetus. Follow Up: Call to arrange for care. This can be provided by your family doctor, an parts manager ( specialist) or a primary care clinic. Get Prompt Medical Attention if any of the following occur: Vaginal bleeding Moderate or severe abdominal or back pain Excessive vomiting, unable to keep any fluids down for six hours Burning with urination Headache, dizziness or rapid weight gain Your exam today shows that you are . During , it is normal to develop tender swollen breasts, frequent urination and mild vaginal discharge. During the first three months, nausea is common. Guidelines For A Healthy : To ensure that your baby is born healthy there are certain things that you can do: When you feel tired, you should REST. This is especially true in the later months of . Your body needs more FLUIDS than you may be used to: You should drink 8-10 glasses of juice, milk or water. Eat well-balanced MEALS at regular intervals to supply your body with enough protein. You can expect a total weight gain of about 30 pounds during the . Do not try to diet or lose weight while you are . Because of the extra nutritional needs during , take one VITAMIN daily. Do not take any other MEDICINE during your (prescribed or [id number]) unless your doctor specifically recommends this. Many drugs can have harmful effects on the growing baby. If NAUSEA or VOMITING become a problem, avoid greasy and fried foods. Eat several smaller meals throughout the day rather than three large meals. If you SMOKE, you must stop. The nicotine you breathe in goes right to the baby. Stay away from ALCOHOL, even in moderate amounts. Daily drinking will harm your baby and can cause permanent brain damage. RECREATIONAL DRUGS are harmful, especially cocaine, crack, and heroin. Marijuana should also be avoided. If you were using recreational drugs or prescribed medicine when you found out that you were , talk to your doctor about possible effects on the fetus. Follow Up: Call to arrange for care. This can be provided by your family doctor, an parts manager ( specialist) or a primary care clinic. Get Prompt Medical Attention if any of the following occur: Vaginal bleeding Moderate or severe abdominal or back pain Excessive vomiting, unable to keep any fluids down for six hours Burning with urination Headache, dizziness or rapid weight gain Ondansetron Oral disintegrating tablet What is this medicine? ONDANSETRON (on KASI se naga) is used to treat nausea and vomiting caused by chemotherapy. It is also used to prevent or treat nausea and vomiting after surgery. How should I use this medicine? These tablets are made to dissolve in the mouth. Do not try to push the tablet through the foil backing. With dry hands, peel away the foil backing and gently remove the tablet. Place the tablet in the mouth and allow it to dissolve, then swallow. While you may take these tablets with water, it is not necessary to do so. Talk to your jr. java developer regarding the use of this medicine in children. Special care may be needed. What side effects may I notice from receiving this medicine? Side effects that you should report to your doctor or health account executive healthcare as soon as possible: allergic reactions like skin rash, itching or hives, swelling of the face, lips, or tongue breathing problems dizziness fast or irregular heartbeat feeling faint or lightheaded, falls fever and chills swelling of the hands and feet tightness in the chest Side effects that usually do not require medical attention (report to your doctor or health account executive healthcare if they continue or are bothersome): constipation or diarrhea headache What may interact with this medicine? Do not take this medicine with any of the following medications: -apomorphine -cisapride -dofetilide -dronedarone -pimozide -thioridazine -ziprasidone This medicine may also interact with the following medications: -carbamazepine -phenytoin -rifampicin -tramadol -other medicines that prolong the QT interval (cause an abnormal heart rhythm) What if I miss a dose? If you miss a dose, take it as soon as you can. If it is almost time for your next dose, take only that dose. Do not take double or extra doses. Where should I keep my medicine? Keep out of the reach of children. Store between 2 and 30 degrees C (36 and 86 degrees F). Throw away any unused medicine after the expiration date. What should I tell my health care provider before I take this medicine? They need to know if you have any of these conditions: heart disease history of irregular heartbeat liver disease low levels of magnesium or potassium in the blood an unusual or allergic reaction to ondansetron, granisetron, other medicines, foods, dyes, or preservatives or trying to get breast-feeding What should I watch for while using this medicine? Check with your doctor or health account executive healthcare as soon as you can if you have any sign of an allergic reaction. You have been given the following additional information: , New Dx , New Dx Ondansetron Oral disintegrating tablet (Electronically signed by Sari Deleon A.R.N.P. 11/01/2016 13:39)
--- NOTE | 2016-11-01 20:07 | ED MED RECONCILIATION SUMMARY ---
Patient: YOSELIN URBANO Medication Reconciliation Report [facility] VisitID: [id number] [place] [address] 21y, F Registration Date/Time: 11/01/2016 Weight: 52.1 kg Height/Length: 62 in. BMI: 21.0 ALLERGIES: Aspirin, Claritin The patient's Home Medications are listed below: NONE. The source(s) of the original Home Medication information: Not obtained. The following Medications were given to the patient in the Emergency Department: None. The following Medications were prescribed to the patient: Zofran 4 mg: Take 1 orally every six hours as needed for nausea/vomiting. Dispense ten (10). No refills. Substitution is permissible. -- Sari Deleon, A.R.N.P. vitamins: Take 1 orally every day. Dispense thirty (30). No refill. -- Sari Deleon A.R.N.P.
--- NOTE | 2016-11-01 20:07 | ED MED RECONCILIATION SUMMARY ---
Patient: YOSELIN URBANO Medication Reconciliation Report [facility] VisitID: [id number] [place] [address] 21y, F Registration Date/Time: 11/01/2016 Weight: 52.1 kg Height/Length: 62 in. BMI: 21.0 ALLERGIES: Aspirin, Claritin The patient's Home Medications are listed below: NONE. The source(s) of the original Home Medication information: Not obtained. The following Medications were given to the patient in the Emergency Department: None. The following Medications were prescribed to the patient: Zofran 4 mg: Take 1 orally every six hours as needed for nausea/vomiting. Dispense ten (10). No refills. Substitution is permissible. -- Sari Deleon, A.R.N.P. vitamins: Take 1 orally every day. Dispense thirty (30). No refill. -- Sari Deleon A.R.N.P.
== END 2016-11-01 12:47 | disposition home or self-care (01) ==
LOC: ED SRH 12:02
DX: O36.8120 Decreased fetal movements, second trimester, not applicable or unspecified (principal); O09.32 Supervision of pregnancy with insufficient antenatal care, second trimester; Z3A.00 Weeks of gestation of pregnancy not specified; O24.112 Pre-existing type 2 diabetes mellitus, in pregnancy, second trimester; F17.210 Nicotine dependence, cigarettes, uncomplicated; Z88.8 Allergy status to other drugs, medicaments and biological substances